=== PATIENT | female | born 1960 | race Two or more races ===

== ENCOUNTER → 2024-05-28 | Outpatient (CLI) | payer BC, SELFPAY ==
--- NOTE | 2024-05-28 09:33 | XR_ITS ---
Examination: Esophagram standard Fluoroscopy 16 spot fluoroscopic films of the esophagus Upright PA chest single view Upright soft tissue lateral neck single view Exam date and time: 23/07/2024 at 0952 hours INDICATIONS: Pain in the throat with eating 15 years FINDINGS: Upright PA chest normal heart size, lungs are clear Soft tissue lateral neck normal epiglottis no prevertebral soft tissue prominence Patient swallowed thin barium with 16 spot fluoroscopic films of the esophagus Primary peristaltic esophageal waves Mild intermittent gastroesophageal reflux. No constricting esophageal lesion No stricture at the gastroesophageal junction IMPRESSION: Mild intermittent gastroesophageal reflux Fluoroscopy 0.23 minute 16 spot fluoroscopic films of the esophagus
== END | disposition home or self-care (01) ==
PROVIDERS: PCP Internal Medicine; Referring Provider Internal Medicine; Visit Provider Internal Medicine
DX: K21.9 Gastro-esophageal reflux disease without esophagitis (principal)
CPT/HCPCS: 74220; A4699